=== PATIENT | female | born 1995 | race Caucasian/White ===

== ENCOUNTER 2017-10-28 14:01 | Emergency (ER) | payer OTHER ==
[2017-10-28 14:11] VITALS: TEMP 98.4
--- NOTE | 2017-10-28 14:29 | EDPHY ---
H & P Smoking Status: Never smoked Time Seen by Provider: 10/28/17 14:12 HPI/ROS: CHIEF COMPLAINT: Chest pain HISTORY OF PRESENT ILLNESS: 22-year-old female presents with chest pain. 2 weeks ago she was diagnosed with viral meningitis and spent 3 days in the hospital. She has now completely recovered from the meningitis. 2 days ago she developed right-sided chest pain, which resolved spontaneously. Associated with a dry cough. This morning she awoke with bilateral chest pain. The chest pain is moderate, intermittent and increases with deep inspiration. No fever or shortness of breath. REVIEW OF SYSTEMS: Constitutional: No fever, no chills Eyes: No visual changes ENT: No sore throat Respiratory: no shortness of breath Gastrointestinal: no vomiting, no abdominal pain Genitourinary: no dysuria Musculoskeletal: No leg pain or swelling Skin: No rash Neurological: No headache, no weakness Psychiatric: No depression (Rosibel Tomas) Past Medical/Surgical History: Viral meningitis (Rosibel Tomas) Social History: Student at [employer] [facility] [place] (Rosibel Tomas) Physical Exam: General Appearance: Alert, pleasant, nontoxic-appearing Eyes: Pupils equal and round, no conjunctival injection ENT, Mouth: Mucous membranes moist Neck: Normal inspection Respiratory: Lungs are clear to auscultation Cardiovascular: Regular rate and rhythm Gastrointestinal: Abdomen is soft and nontender Neurological: A&O, nonfocal, normal gait Skin: Warm and dry, no rash Extremities: Nontender, no pedal edema Psychiatric: Mood and affect normal (Rosibel Tomas) Constitutional: Initial Vital Signs Temperature (C) 36.9 C 10/28/17 14:08 Heart Rate 86 10/28/17 14:08 Respiratory Rate 16 10/28/17 14:08 Blood Pressure 113/82 H 10/28/17 14:08 O2 Sat (%) 97 10/28/17 14:08 O2 Delivery Mode Room Air Allergies/Adverse Reactions: sulfamethoxazole [From Bactrim] Allergy (Verified 10/28/17 14:06) trimethoprim [From Bactrim] Allergy (Verified 10/28/17 14:06) Home Medications: Medication Instructions Recorded Azithromycin [Zithromax] 250 mg PO DAILY #6 tab 10/28/17 Ortho-Cyclen 10/28/17 Medical Decision Making - Diagnostics EKG Interpretation: EKG interpreted by me reveals normal sinus rhythm, rate 78, no ST or T segment changes. (Rosibel Tomas) ED Course/Re-evaluation: This patient presents with chest pain and cough after recent admission for viral meningitis. She is well appearing and clinically does not have pneumonia. I will order a chest x-ray and D-dimer to further evaluate. She is low risk for pulmonary embolism per Wells rule. If d-dimer is negative, I do not feel that further evaluation for pulmonary embolism is indicated. CXR reveals likely rt sided infiltrate. Will place pt on Zpak, f/u PCP. Does not meet SIRS criteria. (Rosibel Tomas) Differential Diagnosis: Differential diagnosis includes though it is not limited to pneumonia, pneumothorax, pulmonary embolism, aortic dissection, pericarditis, acute coronary syndrome. (Rosibel Tomas) Other Provider: After discharge, I received a call from Dr. Jimenez with radiology over-read that CXR is positive for infiltrate, likely pneumonia. I called her to inform her and spoke to her at 4:23pm. It looks like she was already prescribed azithromycin, which should be adequate coverage. (Jaret Hernandez) - Data Points Laboratory Results: Laboratory Results 10/28/17 14:35 10/28/17 14:35 Departure - Departure Disposition: Home, Routine, Self-Care Clinical Impression: Acute bronchitis Qualifiers: Bronchitis organism: unspecified organism Qualified Code(s): J20.9 - Acute bronchitis, unspecified Chest pain Qualifiers: Chest pain type: other chest pain Qualified Code(s): R07.89 - Other chest pain ; R07.8 - Other chest pain Condition: Good Instructions: Chest Pain (ED), Acute Bronchitis (ED) Additional Instructions: Ibuprofen 600 mg 3 times daily while the pain persists. Return for worsening symptoms, including fever, shortness of breath or worsening pain. [facility]Other[facility] - 2-3 days, if not improved Prescriptions: Azithromycin [Zithromax] 250 mg PO DAILY #6 tab
--- NOTE | 2017-10-28 14:47 | CPEKG ---
Heart Rate: 78 RR Interval: 769 P-R Interval: 140 QRSD Interval: 72 QT Interval: 384 QTC Interval: 438 P Swanton: 21 QRS Swanton: 41 T Wave Swanton: 36 EKG Severity - NORMAL ECG - EKG Impression: SINUS RHYTHM Electronically Signed By: Fuad Watts 30-Oct-2017 16:15:40
[2017-10-28 15:02] LABS: % IMMATURE GRANULYOCYTES 0.4 % (0.0-1.1); ABSOLUTE IMMATURE GRANULOCYTES 0.04 10^3/uL (0.00-0.10); ADD DIFF? NO; ADD MORPH? NO; ADD SCAN? NO; ATYPICAL LYMPHOCYTE FLAG 20 (0-99); FRAGMENT RBC FLAG 0 (0-99); HEMATOCRIT 39.3 % (38.0-47.0); HEMOGLOBIN 13.2 g/dL (12.6-16.3); LEFT SHIFT FLG 0 (0-99); LIPEMIA HEMOLYSIS FLAG 80 (0-99); MEAN CELL HEMOGLOBIN 30.5 pg (27.9-34.1); MEAN CELL HEMOGLOBIN CONCENTR. 33.6 g/dL (32.4-36.7); MEAN CELL VOLUME 90.8 fL (81.5-99.8); MEAN PLATELET VOLUME 10.6 fL (8.7-11.7); PLATELET CLUMPS FLAG 0 (0-99); PLATELET COUNT 291 10^3/uL (150-400); RED BLOOD CELL COUNT 4.33 10^6/uL (4.18-5.33)
[2017-10-28 15:06] LABS: ANION GAP 15 mEq/L (8-16); CALCIUM 9.6 mg/dL (8.5-10.4); CARBON DIOXIDE 20 mEq/l (22-31); CHLORIDE 106 mEq/L (97-110); CREATININE 0.7 mg/dL (0.6-1.0); GLOMERULAR FILTRATION RATE > 60; GLUCOSE 100 mg/dL (70-100); SODIUM 141 mEq/L (134-144)
[2017-10-28 15:30] VITALS: BP 115/78; PULSE 79; RESP 14; O2SAT 95
== END 2017-10-28 15:29 | disposition home or self-care (01) ==
DX: R07.89 Other chest pain (principal); J20.9 Acute bronchitis, unspecified

== ENCOUNTER 2018-02-25 21:34 | Emergency (ER) | payer OTHER ==
--- NOTE | 2018-02-25 21:59 | CPEKG ---
Heart Rate: 87 RR Interval: 690 P-R Interval: 148 QRSD Interval: 76 QT Interval: 384 QTC Interval: 462 P Highwood: 39 QRS [place]wood: 28 T Wave [place]wood: 33 EKG Severity - NORMAL ECG - EKG Impression: SINUS RHYTHM Electronically Signed By: Malgorzata Lilly 25-Feb-2018 22:52:33
--- NOTE | 2018-02-25 22:18 | EDPHY ---
H & P Stated Complaint: SOB, chest pain, anxious Time Seen by Provider: 02/25/18 22:00 HPI/ROS: HPI The patient presents with shortness of breath and chest pain which began at about 9:15 p.m. Tonight while she was seated doing homework. She reports intermittent episodes of chest pain since September of 2017 after she was diagnosed with meningitis. She was diagnosed with pleurisy as the cause of this pain and has had symptoms that coming go since then. Her symptoms became worse tonight. She reports a sharp chest pain which radiates throughout her chest which is constant and severe. Tonight, she also has shortness of breath with this. She feels as if she cannot get a deep breath in. She has a mild cough. She does not have any rhinorrhea, sore throat, fever. She does not have any leg swelling, she did recently travel on several airplane flights for spring, returning a few days ago. She is on an oral OCP. She does not have any significant family history. She feels as if her face is tingling and she feels dizzy when she sits up.. REVIEW OF SYSTEMS Constitutional: No fever, no chills. Eyes: No discharge. ENT: No sore throat. Cardiovascular: Positive for chest pain, no palpitations. Respiratory: No cough, no shortness of breath. Gastrointestinal: No abdominal pain, no vomiting. Genitourinary: No hematuria. Musculoskeletal: No back pain. Skin: No rashes. Neurological: No headache. PMHx: History of meningitis in September of 2017, intermittent episodes of chest pain, history of T and a Soc Hx: College student PHYSICAL General Appearance: Alert, anxious, tearful, hyperventilating Eyes: Pupils equal and round no pallor or injection ENT, Mouth: Mucous membranes moist Respiratory: There are no retractions, lungs are clear to auscultation Cardiovascular: Regular rate and rhythm Gastrointestinal: Abdomen is soft and non-tender, no masses, bowel sounds normal Neurological: A&O, moves all extremities Skin: Warm and dry, no rashes Musculoskeletal: Neck is supple non tender Extremities: symmetrical, full range of motion Psychiatric: Patient is oriented X 3, there is no agitation Source: Patient Exam Limitations: No limitations - Personal History LMP (Females 10-55): Now Current Tetanus Diphtheria and Acellular Pertussis (TDAP): Yes - Medical/Surgical History Hx Asthma: No Hx Chronic Respiratory Disease: No Hx Diabetes: No Hx Cardiac Disease: No Hx Renal Disease: No Hx Cirrhosis: No Hx Alcoholism: No Hx HIV/AIDS: No Hx Splenectomy or Spleen Trauma: No Other PMH: Hospitilized at [facility] viral meningitis - Social History Smoking Status: Never smoked Constitutional: Initial Vital Signs Temperature (C) 36.6 C 02/25/18 21:35 Heart Rate 90 02/25/18 21:35 Respiratory Rate 20 02/25/18 21:35 Blood Pressure 143/97 H 02/25/18 21:35 O2 Sat (%) 100 02/25/18 21:35 O2 Delivery Mode Room Air Allergies/Adverse Reactions: sulfamethoxazole [From Bactrim] Allergy (Verified 02/25/18 21:38) trimethoprim [From Bactrim] Allergy (Verified 02/25/18 21:38) Home Medications: Medication Instructions Recorded Azithromycin [Zithromax] 250 mg PO DAILY #6 tab 10/28/17 Ortho-Cyclen 10/28/17 Medical Decision Making - Diagnostics Imaging Results: Imaging Impressions Chest X-Ray 02/25/18 23:03 Impression: Mild peribronchial thickening may reflect airways disease.. Imaging: I viewed and interpreted images myself Differential Diagnosis: 22-year-old female with history of intermittent pleurisy since manage O2 otitis diagnosis in 2017 now presents with chest pain and shortness of breath for the last 1 hr. She did recently take several airplane flights and is on an oral OCP. She has normal vital signs and is well-appearing on exam though is hyperventilating. She went to her family practice doctor today and had normal chest x-ray and EKG performed. Differential diagnosis includes pleurisy, anxiety attack, GERD, less likely pulmonary embolism though she does have risk factors. I will not repeat chest x-ray as it was done earlier today. Plan for basic labs. In the emergency department, patient had normal EKG and labs including D-dimer. I reassessed her and she continues to feel short of breath. Her lungs continued to sound clear. She is worried about going home with her ongoing symptoms. I will give her a dose of anti-inflammatories for presumed pleurisy and trial her on some oxygen even though her saturations are normal to see if this helps her to feel better. She did feel somewhat better after receiving supplemental oxygen. She will be discharged home with instructions on pleurisy. I do suspect there is a component of anxiety to her presentation. She has been hyperventilating here. She can follow with her family medicine doctor in the next few days. - Data Points Laboratory Results: Laboratory Results 02/25/18 21:57 02/25/18 21:57 02/25/18 02/25/18 02/25/18 22:28 21:57 21:57 WBC 8.34 10^3/uL 10^3/uL (3.80-9.50) RBC 4.79 10^6/uL 10^6/uL (4.18-5.33) Hgb 14.3 g/dL g/dL (12.6-16.3) Hct 42.3 % % (38.0-47.0) MCV 88.3 fL fL (81.5-99.8) MCH 29.9 pg pg (27.9-34.1) MCHC 33.8 g/dL g/dL (32.4-36.7) RDW 13.4 % % (11.5-15.2) Plt Count 240 10^3/uL 10^3/uL (150-400) MPV 10.8 fL fL (8.7-11.7) Neut % (Auto) 58.8 % % (39.3-74.2) Lymph % (Auto) 32.0 % % (15.0-45.0) Dixie % (Auto) 7.8 % % (4.5-13.0) Eos % (Auto) 0.7 % % (0.6-7.6) Baso % (Auto) 0.5 % % (0.3-1.7) Nucleat RBC Rel Count 0.0 % % (0.0-0.2) Absolute Neuts (auto) 4.90 10^3/uL 10^3/uL (1.70-6.50) Absolute Lymphs (auto) 2.67 10^3/uL 10^3/uL (1.00-3.00) Absolute Monos (auto) 0.65 10^3/uL 10^3/uL (0.30-0.80) Absolute Eos (auto) 0.06 10^3/uL 10^3/uL (0.03-0.40) Absolute Basos (auto) 0.04 10^3/uL 10^3/uL (0.02-0.10) Absolute Nucleated RBC 0.00 10^3/uL 10^3/uL (0-0.01) Immature Gran % 0.2 % % (0.0-1.1) Immature Gran # 0.02 10^3/uL 10^3/uL (0.00-0.10) PT 15.0 SEC SEC (12.0-15.0) INR 1.16 (0.83-1.16) D-Dimer < 0.27 ug/mLFEU ug/mLFEU (0.00-0.50) Sodium 138 mEq/L mEq/L (135-145) Potassium 3.3 mEq/L L mEq/L (3.5-5.2) Chloride 105 mEq/L mEq/L (97-110) Carbon Dioxide 18 mEq/l L mEq/l (22-31) Anion Gap 15 mEq/L mEq/L (8-16) BUN 16 mg/dL mg/dL (7-23) Creatinine 0.7 mg/dL mg/dL (0.6-1.0) Estimated GFR > 60 Glucose 92 mg/dL mg/dL (70-100) Calcium 10.0 mg/dL mg/dL (8.5-10.4) Total Bilirubin 0.5 mg/dL mg/dL (0.1-1.4) AST 23 IU/L IU/L (14-46) ALT 33 IU/L IU/L (9-52) Alkaline Phosphatase 64 IU/L IU/L (38-126) Troponin I < 0.012 ng/mL ng/mL (0.000-0.034) Total Protein 8.0 g/dL g/dL (6.3-8.2) Albumin 4.6 g/dL g/dL (3.5-5.0) 02/25/18 21:57 WBC RBC Hgb Hct MCV MCH MCHC RDW Plt Count MPV Neut % (Auto) Lymph % (Auto) Dixie % (Auto) Eos % (Auto) Baso % (Auto) Nucleat RBC Rel Count Absolute Neuts (auto) Absolute Lymphs (auto) Absolute Monos (auto) Absolute Eos (auto) Absolute Basos (auto) Absolute Nucleated RBC Immature Gran % Immature Gran # PT REJ INR REJ D-Dimer Sodium Potassium Chloride Carbon Dioxide Anion Gap BUN Creatinine Estimated GFR Glucose Calcium Total Bilirubin AST ALT Alkaline Phosphatase Troponin I Total Protein Albumin Medications Given: Discontinued Medications Ketorolac Tromethamine (Toradol) 15 mg IVP EDNOW ONE Stop: 02/25/18 23:05 Last Admin: 02/25/18 23:14 Dose: 15 mg Departure - Departure Disposition: Home, Routine, Self-Care Clinical Impression: Shortness of breath Chest pain Qualifiers: Chest pain type: chest pain on breathing Qualified Code(s): R07.1 - Chest pain on breathing Condition: Good Instructions: Pleurisy (ED) Additional Instructions: I recommend you take ibuprofen 400 mg every 6 hr or Aleve (Naprosyn) 250 mg every 12 hr until your feeling better. Please follow-up with your primary care doctor in a few days. Return to the emergency department if your worse in any way. Referrals: Jessy Mark MD [[facility] [place] Primary Care Provider] - As per Instructions
[2018-02-25 22:21] LABS: PLATELET COUNT 240 10^3/uL (150-400)
[2018-02-25 22:48] LABS: INR 1.16 (0.83-1.16)
[2018-02-25] MEDS ORDERED: KETOROLAC 15 MG/1 ML SDV IVP ONE (23:04)
[2018-02-25 23:37] VITALS: BP 116/85; PULSE 69; RESP 18; TEMP 97.5; O2SAT 99
== END 2018-02-25 23:38 | disposition home or self-care (01) ==
DX: R06.02 Shortness of breath (principal); R07.1 Chest pain on breathing
CPT/HCPCS: 96374; J1885

== ENCOUNTER → 2018-08-01 | Outpatient (CLI) | payer OTHER | LOC: BMCIMAGING 09:53 | PROVIDERS: ATTEND Emergency Medicine | DX: M25.532 Pain in left wrist (principal) ==